=== PATIENT | male | born 1955 | race Caucasian/White ===

== ENCOUNTER 2017-03-18 10:10 | Day surgery (SDC) | payer BC ==
[2017-03-18] MEDS ORDERED: NS 1,000 ML IV ONE (10:12)
[2017-03-18] MEDS ORDERED: FAMOTIDINE 20 MG TAB PO ONE (10:12)
[2017-03-18] MEDS ORDERED: DIAZEPAM 5 MG TAB PO ONE (10:12)
[2017-03-18] MEDS ORDERED: diphenhydrAMINE 25 MG CAP PO ONE (10:12)
[2017-03-18] MEDS ORDERED: ASPIRIN EC 325 MG TAB PO ONE (10:12)
[2017-03-18] MEDS ORDERED: fentaNYL 100 MCG/2 ML INJ ONE (10:13)
[2017-03-18] MEDS ORDERED: MIDAZOLAM 2 MG/2 ML VIAL ONE ×2 (10:13→12:27)
[2017-03-18] MEDS ORDERED: LIDOCAINE 1% 300 MG/30 ML SDV ONE (10:13)
[2017-03-18] MEDS ORDERED: IOPAMIDOL (ISOVUE-370) 150 ML BTL IV ONE (10:13)
--- NOTE | 2017-03-18 10:38 | CPEKG ---
Heart Rate: 68 RR Interval: 882 P-R Interval: 188 QRSD Interval: 80 QT Interval: 392 QTC Interval: 417 P Cambridge: 61 QRS [place]: 2 T Wave [place]: 34 EKG Severity - NORMAL ECG - EKG Impression: SINUS RHYTHM Electronically Signed By: Andrés Acevedo 18-Mar-2017 11:04:50
[2017-03-18 10:54] LABS: PLATELET COUNT 191 10^3/uL (150-400)
[2017-03-18 11:05] LABS: INR 1.02 (0.83-1.16); PROTIME(PATIENT) 13.3 SEC (12.0-15.0)
--- NOTE | 2017-03-18 11:54 | PDPROPOC ---
Sedation Plan of Care Sedation Plan of Care: vital signs stable, mental status noted, patient educated of risks, benefits, alternatives, patient can tolerate sedation ASA Classification: ASA 2 Planned drugs: fentanyl, midazolam Mallampati Score: Class 1 Mallampati Reference Image:
--- NOTE | 2017-03-18 11:54 | PDGENHP ---
History & Physical History of Present Illness: 61 year old gentleman with Non sustainved VT on ETT. Pertinent Past, Social, Family History: PMH: PAF dx in 1999 Relevant Physical Exam: awake, alert, appropriate. distal pulses in tact
[2017-03-18] MEDS ORDERED: NITROGLYCERIN 0.4 MG BTL SL PRN (12:57)
[2017-03-18] MEDS ORDERED: ONDANSETRON 4 MG/2 ML VIAL IVP PRN (12:57)
[2017-03-18] MEDS ORDERED: ATROPINE SULFATE 1 MG/10 ML SYR IVP PRN (12:57)
--- NOTE | 2017-03-18 13:59 | GPN ---
[f rep st] PROCEDURE NOTE DATE OF PROCEDURE: 03/18/2017 PROCEDURE PERFORMED: Diagnostic left heart catheterization. INDICATION FOR PROCEDURE: High-risk findings on exercise treadmill stress test including increasing ventricular ectopy and runs of nonsustained ventricular tachycardia. PROCEDURE: After informed consent was obtained, the patient was brought to the cardiac catheterizati on lab and prepped and draped in sterile fashion. Using 1% lidocaine, the right groin was anesthetiz ed. Using the modified Seldinger technique, a 6-Turkmen catheter was placed in the right common femor al artery without complications. A JL4 catheter was used to take images of the left coronary anatomy in multiple projections. The JL4 catheter was exchanged over a guidewire for a JR4 catheter. JR4 c atheter was used to take images of the right coronary anatomy in multiple projections. The JR4 escobar ter was exchanged over a guidewire for angled pigtail catheter. Angled pigtail catheter was used to cross the aortic valve. LVEDP was assessed left ventriculogram was performed. Aortic valve gradient and pullback was assessed. Angled pigtail catheter was removed over a guidewire. After removal of angled pigtail catheter, right common femoral artery angiography was obtained demonstrating appropria te placement of the 6-Turkmen femoral sheath below the level of the inguinal ligament without evidence of trauma to the femoral or iliac vessels. FINDINGS: Left main is short and sizing and normal caliber that promptly bifurcates into left anteri or descending and left circumflex coronary artery. There is no evidence of coronary disease within t he left main. Left anterior descending artery: Its branches are free of coronary artery disease. Left circumflex artery: A codominant vessel with no evidence of coronary disease. There is no evide nce of coronary disease when large size first obtuse marginal branch. Right coronary artery is a codominant vessel that bifurcates into PDA and PLV branch. There is no ev idence of coronary disease or its branch vessels. Hemodynamics: LVEF 65%. LVEDP 9 mmHg. Aortic valve gradient: None. CONCLUSION: 1. Normal coronary arteries. 2. Normal left ventricular function with LVEF of 60% to 65%. 3. Normal hemodynamics with LVEDP of 9 mmHg. Successful deployment of Angio-Seal closure device. There were no postoperative complications. PLAN: Patient will be discharged home later this afternoon. Patient is scheduled to see Dr. Rafi Linares of electrophysiology in consultation in the setting of increasing ventricular ectopy, runs of non sustained ventricular tachycardia, and a history of paroxysmal atrial fibrillation. /[id number]/MODL
== END 2017-03-18 17:00 | disposition home or self-care (01) ==
LOC: FCATH 10:10
PROVIDERS: ATTEND Internal Medicine Cardiovascular Disease
DX: I48.0 Paroxysmal atrial fibrillation (principal); I49.3 Ventricular premature depolarization; R07.89 Other chest pain; R42 Dizziness and giddiness
CPT/HCPCS: C1760; J1644; J2250; J3010; Q9967

== ENCOUNTER 2017-03-18 20:34 | Observation (INO) | payer BC ==
[2017-03-18] MEDS ORDERED: IOPAMIDOL (ISOVUE-300) 100 ML BTL ONE (20:46)
[2017-03-18 20:48] LABS: PLATELET COUNT 191 10^3/uL (150-400)
[2017-03-18 21:01] LABS: INR 1.08 (0.83-1.16); PROTIME(PATIENT) 13.9 SEC (12.0-15.0)
--- NOTE | 2017-03-18 21:27 | CPEKG ---
Heart Rate: 68 RR Interval: 882 P-R Interval: 200 QRSD Interval: 90 QT Interval: 396 QTC Interval: 422 P [place]: 51 QRS [place]: 33 T Wave [place]: 31 EKG Severity - OTHERWISE NORMAL ECG - EKG Impression: SINUS RHYTHM EKG Impression: VENTRICULAR PREMATURE COMPLEX Electronically Signed By: David Cruz 18-Mar-2017 23:06:02
[2017-03-18] MEDS ORDERED: ONDANSETRON DISINTEGRATING 4 MG TAB PO PRN (22:40)
[2017-03-18] MEDS ORDERED: ONDANSETRON 4 MG/2 ML VIAL IVP PRN (22:40)
[2017-03-18] MEDS ORDERED: ACETAMINOPHEN 325 MG TAB PO PRN (22:40)
--- NOTE | 2017-03-18 22:47 | EDPHY ---
H & P Time Seen by Provider: 03/18/17 20:39 HPI/ROS: HPI Post coronary angiogram bleeding. 61-year-old male by ambulance with his automatic spinning lathe setter Dr. Fish Noe. This patient had a coronary angiogram earlier this afternoon. He was home after the procedure. He stood up and felt a pop in his right inguinal area. He then stated that he became nauseous followed by lightheadedness and had a near fainting event. Dr. Fish Noe his automatic spinning lathe setter happened to be close by. Dr. Noe came to his house and assessed him. He was diaphoretic and pale looking. Dr. Fish Noe did not appreciate a right femoral expanding hematoma involving the insertion site. However, he applied pressure to the area and the patient was emergently brought to the emergency department. On arrival his vital signs were normal. I inspected the area of the catheter insertion. There was no expanding hematoma. The patient denies any associated chest pain or palpitations. ROS: Constitutional: No fever, no chills. As above. Eyes: No discharge. No changes in vision. ENT: No sore throat. No nasal congestion or rhinorrhea. Respiratory: No cough. No shortness of breath. Cardiac: No chest pain, no palpitations. Gastrointestinal: No abdominal pain, no vomiting, no diarrhea. Genitourinary: No hematuria. No dysuria or increased frequency with urination. Musculoskeletal: No back pain. No neck pain. No myalgias or arthralgias. Skin: No rashes. Neurological: No headache. No focal weakness or altered sensation. Past medical history: Appendectomy, hernia, broken pelvis, multiple orthopedic surgeries, atrial fibrillation with electrical cardioversion. This is the reason for the diagnostic coronary angiogram prior to being seen by Dr. Linares. He is not on any anticoagulation or antiplatelet agents. Social history: Nonsmoker. Here with his . No alcohol Physical Exam: General Appearance: Alert, mildly anxious. This patient is responding to questions appropriately and in full sentences. This patient appears well- hydrated and well-nourished. Eyes: Pupils equal and round no pallor or injection. No lid edema, erythema or injection. ENT, Mouth: Mucous membranes are moist. The pharyngeal tissues are unremarkable. No edema or swelling. No asymmetry suggestive of abscess. No erythema or exudates. No tongue lacerations or abrasions. Respiratory: There are no retractions, lungs are clear to auscultation with good air movement bilaterally. Cardiovascular: Regular rate and rhythm. No murmur. Gastrointestinal: Abdomen is soft and nontender, no masses, bowel sounds normal. No focal tenderness at McBurney's point. No Curry sign. Neurological: Motor sensory function is grossly intact. Cranial nerves are normal. Skin: Warm and dry, no rashes. Musculoskeletal: Neck is supple and nontender. Extremities are symmetrical. Right femoral catheter insertion site inspected. Strong pulse, no significant hematoma or evidence of expanding/pulsatile mass. All joints range without pain or impingement. His lower extremities are neurovascularly intact. Psychiatric: No agitation. No depression. Database: EKG: EKG time is 9:25 p.m.; EKG shows a narrow complex normal sinus rhythm with a ventricular rate of 68. PVCs noted. The NC, QRS, QT intervals are within normal limits. There are no ST-T wave changes indicative of ischemic or injury pattern. No evidence of right heart strain. Interpreted by me. Imaging: CT scan of the abdomen and pelvis with IV contrast: No retroperitoneal hematoma. No evidence of hemorrhage. Femoral insertion site has some stranding but nothing abnormal considering the procedure. Results were discussed with staff radiologist Dr. Tushar Rivera. Procedures: Emergency department course: On arrival, 2 large-bore IVs were placed. Vital signs obtained and are normal. I-STAT hematocrit normal. I evaluated him along with his automatic spinning lathe setter Dr. Fish Noe. EKG obtained. He is stable. 1 L of IV normal saline started. He was sent for CT imaging as above. 10:45 p.m., we observe this patient in the emergency department for 2 hours. He has remained stable but still states he has some nausea and is complaining of a dull headache. He does not want any opiate pain medications because he feels this will make him more nauseous and make him lightheaded. Toradol is not an option for obvious reasons. Plan will be to admit him to observation overnight. I discussed the results of his CT scan and emergency department workup with him and his . All of their questions were answered. He and his feel more comfortable with him staying in the hospital overnight. I spoke with the on-call hospitalist. Case discussed in detail. Patient accepted for admission to telemetry observation. Patient admitted in stable and improved condition. Differential Diagnosis: The differential diagnosis on this patient includes but is not limited to vasovagal syncope. Significant postprocedural hemorrhage, CVA, arrhythmia unlikely. This represents a partial list of diagnoses considered. These considerations are based on history, physical exam, past history, reassessment and diagnostic testing. Smoking Status: Never smoked Constitutional: Initial Vital Signs Temperature (C) 37.2 C 03/18/17 20:39 Heart Rate 78 03/18/17 20:39 Respiratory Rate 18 03/18/17 20:39 Blood Pressure 126/82 H 03/18/17 20:39 O2 Sat (%) 97 03/18/17 20:39 O2 Delivery Mode Room Air Allergies/Adverse Reactions: hydrocodone [From Vicodin] Allergy (Verified 03/12/17 10:32) Vomiting morphine Allergy (Verified 03/19/17 00:28) Vomiting Home Medications: Medication Instructions Recorded Aspirin [Aspirin 81mg (*)] 81 mg PO DAILY 03/12/17 Cyanocobalamin [Vitamin B12 (*)] 1,000 mcg PO DAILY 03/12/17 Herbals/Supplements -Info Only 1 ea PO DAILY 03/12/17 Multivitamins [Multivitamin (*)] 1 each PO DAILY 03/12/17 Carboxymethylcellulose 1% [Refresh 1 drop EACHEYE DAILY PRN 03/19/17 Celluvisc (*)] Medical Decision Making - Data Points Laboratory Results: Laboratory Results 03/18/17 20:40 03/18/17 20:40 Medications Given: Discontinued Medications Sodium Chloride (Ns) 500 mls @ 500 mls/hr IV EDNOW ONE Stop: 03/19/17 00:28 Last Admin: 03/18/17 23:32 Dose: 500 mls Sodium Chloride (Ns) 1,000 mls @ 250 mls/hr IV ONCE ONE Stop: 03/19/17 03:47 Last Admin: 03/19/17 01:00 Dose: 1,000 mls Departure - Departure Disposition: [facility] Inpatient Acute Clinical Impression: Near syncope, Status post cardiac catheterization
[2017-03-18] MEDS ORDERED: NS 500 ML IV ONE (23:29)
--- NOTE | 2017-03-18 23:44 | PDGENHP ---
History and Physical - Chief Complaint Nausea - History of Present Illness 61 yo M w/ hx of arrhythmias presents after likely vasovagal episode. Patient underwent cardiac cath with Dr. Noe earlier today. The procedure was uncomplicated with normal findings and he was sent home. Once at home he was eating dinner and leaned forward to eat over his plate. Upon doing this, he experienced acute, severe pain in his right groin. His noticed a bulge in his R groin at the site of the puncture and applied pressure. Per report the bulge disappeared after this. He was brought to the ED were evaluation was largely unremarkable include CT A/P without hematoma. He continues to feel nauseated and fatigued so he was admitted for observation. History Information - Allergies/Home Medication List Allergies/Adverse Reactions: acetaminophen [From Vicodin] Allergy (Verified 03/12/17 10:32) Vomiting hydrocodone [From Vicodin] Allergy (Verified 03/12/17 10:32) Vomiting Home Medications: Aspirin [Aspirin 81mg (*)] 81 mg PO DAILY 03/12/17 [Last Taken Unknown] Cyanocobalamin [Vitamin B12 (*)] 1,000 mcg PO DAILY 03/12/17 [Last Taken Unknown ] Herbals/Supplements -Info Only 1 ea PO DAILY 03/12/17 [Last Taken Unknown] Multivitamins [Multivitamin (*)] 1 each PO DAILY 03/12/17 [Last Taken Unknown] I have personally reviewed and updated: family history, medical history - Past Medical History atrial fibrillation - Family History Positive for: CAD - Social History Smoking Status: Never smoked Review of Systems Review of Systems: ROS: 10pt was reviewed & negative except for what was stated in HPI & below Physical Exam Physical Exam: Temp Pulse Resp BP Pulse Ox 36.6 C 66 14 144/78 H 96 03/18/17 23:37 03/18/17 23:37 03/18/17 23:37 03/18/17 23:37 03/18/17 23:37 Constitutional: no apparent distress, uncomfortable Eyes: PERRL, EOMI Ears, Nose, Mouth, Throat: moist mucous membranes, no oral mucosal ulcers Cardiovascular: regular rate and rhythym, no murmur, rub, or gallop Respiratory: no respiratory distress, no rales or rhonchi Skin: warm, normal color Musculoskeletal: full muscle strength, no muscle tenderness Neurologic: AAOx3, CN II-XII Intact Psychiatric: interacting appropriately, not anxious Lab Data & Imaging Review 03/18/17 20:40 03/18/17 20:40 WBC 7.16 10^3/uL (3.80-9.50) 03/18/17 20:40 RBC 5.11 10^6/uL (4.40-6.38) 03/18/17 20:40 Hgb 16.2 g/dL (13.7-17.5) 03/18/17 20:40 POC Hgb 16.3 gm/dL (13.7-17.5) 03/18/17 20:33 Hct 46.3 % (40.0-51.0) 03/18/17 20:40 POC Hct 48 % (40-51) 03/18/17 20:33 MCV 90.6 fL (81.5-99.8) 03/18/17 20:40 MCH 31.7 pg (27.9-34.1) 03/18/17 20:40 MCHC 35.0 g/dL (32.4-36.7) 03/18/17 20:40 RDW 12.4 % (11.5-15.2) 03/18/17 20:40 Plt Count 191 10^3/uL (150-400) 03/18/17 20:40 MPV 10.3 fL (8.7-11.7) 03/18/17 20:40 Neut % (Auto) 52.9 % (39.3-74.2) 03/18/17 20:40 Lymph % (Auto) 31.7 % (15.0-45.0) 03/18/17 20:40 [place] % (Auto) 13.1 % (4.5-13.0) H 03/18/17 20:40 Eos % (Auto) 1.4 % (0.6-7.6) 03/18/17 20:40 Baso % (Auto) 0.6 % (0.3-1.7) 03/18/17 20:40 Nucleat RBC Rel Count 0.0 % (0.0-0.2) 03/18/17 20:40 Absolute Neuts (auto) 3.79 10^3/uL (1.70-6.50) 03/18/17 20:40 Absolute Lymphs (auto) 2.27 10^3/uL (1.00-3.00) 03/18/17 20:40 Absolute Monos (auto) 0.94 10^3/uL (0.30-0.80) H 03/18/17 20:40 Absolute Eos (auto) 0.10 10^3/uL (0.03-0.40) 03/18/17 20:40 Absolute Basos (auto) 0.04 10^3/uL (0.02-0.10) 03/18/17 20:40 Absolute Nucleated RBC 0.00 10^3/uL (0-0.01) 03/18/17 20:40 Immature Gran % 0.3 % (0.0-1.1) 03/18/17 20:40 Immature Gran # 0.02 10^3/uL (0.00-0.10) 03/18/17 20:40 PT 13.9 SEC (12.0-15.0) 03/18/17 20:40 INR 1.08 (0.83-1.16) 03/18/17 20:40 APTT 24.4 SEC (23.0-38.0) 03/18/17 20:40 POC Sodium 144 mEq/L (134-144) 03/18/17 20:33 Sodium 140 mEq/L (134-144) 03/18/17 20:40 POC Potassium 3.5 mEq/L (3.3-5.0) 03/18/17 20:33 Potassium 3.6 mEq/L (3.5-5.2) 03/18/17 20:40 POC Chloride 106 mEq/L (97-110) 03/18/17 20:33 Chloride 104 mEq/L (97-110) 03/18/17 20:40 Carbon Dioxide 23 mEq/l (22-31) 03/18/17 20:40 Anion Gap 13 mEq/L (8-16) 03/18/17 20:40 POC BUN 20 mg/dL (7-23) 03/18/17 20:33 BUN 19 mg/dL (7-23) 03/18/17 20:40 Creatinine 0.9 mg/dL (0.7-1.3) 03/18/17 20:40 POC Creatinine 0.9 mg/dL (0.7-1.3) 03/18/17 20:33 Estimated GFR > 60 03/18/17 20:40 Glucose 90 mg/dL (70-100) 03/18/17 20:40 POC Glucose 93 mg/dL (70-100) 03/18/17 20:33 Calcium 8.6 mg/dL (8.5-10.4) 03/18/17 20:40 Patient ABO/Rh A NEGATIVE 03/18/17 20:40 Antibody Screen NEGATIVE 03/18/17 20:40 Imaging Review: CT A/P without acute intra-abdominal process. Visualized and Interpreted EKG results: Yes EKG Interpretation: Positive for: normal sinsus rhythm EKG additional interpertation: PVC noted Assessment & Plan Assessment: 61 yo M s/p cardiac cath on same day presents with near syncope. Plan: 1. Near syncope - Story sounds very consistent with a vaso-vagal event noting triggered by pain and marked by severe nausea and diaphoresis. Work-up in the ED was negative for serious complication of cardiac cath, including unremarkable CT A/P. Patient does have a hx of unclear arrhythmia but this seems less likely noting symptoms. - Monitor on telemetry - Continue IVF - Seen by Dr. Noe from cardiology service, appreciate assistance 2. Hx of arrhythmia - Patient reports previous hx of afib and unclear wide complex tachycardia seen on ETT. Cardiac cath on 03/18 showed no CAD. He was previously on amiodarone but is no longer on this. - Monitor on telemetry Diet - Regular Code - Full Ppx - SCDs Dispo - Admit to observation status
[2017-03-18] MEDS ORDERED: NS 1,000 ML IV ONE (23:48)
[2017-03-19 04:37] LABS: PLATELET COUNT 167 10^3/uL (150-400)
[2017-03-19 07:40] VITALS: BP 126/77; PULSE 64; RESP 12; TEMP 97.9; O2SAT 93
--- NOTE | 2017-03-19 10:14 | PDDCSUM ---
Discharge Summary Discharge Summary: HPI/Hospital Course 61 yo M s/p cardiac cath on same day of admission admitted for near syncope, likely vasovagal in nature. Stabilized with IVF. Some initial concerns about bleeding from groin with possible reported hematoma, but negative CT A/P. No bleeding noted overnight. Monitored overnight, no events on tele. Walked around halls this morning w/o incident. Dr. Noe evaluated and cleared for discharge. He has an appt with his Oscillograph Technician today mid morning. D/C diagnosis: 1. Near syncope - Story sounds very consistent with a vaso-vagal event noting triggered by pain and marked by severe nausea and diaphoresis. Work-up in the ED was negative for serious complication of cardiac cath, including unremarkable CT A/P. Patient does have a hx of unclear arrhythmia but this seems less likely noting symptoms. 2. Hx of arrhythmia - Patient reports previous hx of afib and unclear wide complex tachycardia seen on ETT. Cardiac cath on 03/18 showed no CAD. He was previously on amiodarone but is no longer on this. Exam: VSS NAD AAOX RRR CTAB S/NT/ND NO EDEMA SKIN WARM MEDS: SEE MED REC. NO CHANGES TO HOME MEDS WERE MADE F/U: PER ABOVE TOTAL TIME SPENT ON DISCHARGE IS 35 MINS
--- NOTE | 2017-03-19 15:56 | ASDISCHSUM ---
Discharge Information Plan Status:Home with No Needs Medically Cleared to Leave:03/18/2017 Discharge Date:03/19/2017 10:43 AM CM D/C Disposition: ADT D/C Disposition:Home, Routine, Self-Care Projected Discharge Date:03/19/2017 12:00 AM Transportation at D/C: Discharge Delay Reason: Follow-Up Date:03/19/2017 12:00 AM Discharge Slot: Final Diagnosis: Placement Information Patient Contact Information Contact Name:ANDREW Relationship: Address:[address] [place] [address] City:[place] Alternate Phone: [facility]/Zip Code:[place] [address] Email: Financial Information Financial Class:HMO and PPO Plans Primary Plan Desc: OUT OF STATE PPO Primary Plan Number:[id number] Secondary Plan Desc: Secondary Plan Number: Assessment Information Intervention Information
--- NOTE | 2017-03-19 15:56 | ASDISCHSUM ---
Discharge Information Plan Status:Home with No Needs Medically Cleared to Leave:03/18/2017 Discharge Date:03/19/2017 10:43 AM CM D/C Disposition: ADT D/C Disposition:Home, Routine, Self-Care Projected Discharge Date:03/19/2017 12:00 AM Transportation at D/C: Discharge Delay Reason: Follow-Up Date:03/19/2017 12:00 AM Discharge Slot: Final Diagnosis: Placement Information Patient Contact Information Contact Name:ANDREW Relationship: Address:[address] [place] [address] City:[place] Alternate Phone: [facility]/Zip Code:[place] [address] Email: Financial Information Financial Class:HMO and PPO Plans Primary Plan Desc: OUT OF STATE PPO Primary Plan Number:[id number] Secondary Plan Desc: Secondary Plan Number: Assessment Information Intervention Information
--- NOTE | 2017-03-19 15:56 | ASDISCHSUM ---
Discharge Information Plan Status:Home with No Needs Medically Cleared to Leave:03/18/2017 Discharge Date:03/19/2017 10:43 AM CM D/C Disposition: ADT D/C Disposition:Home, Routine, Self-Care Projected Discharge Date:03/19/2017 12:00 AM Transportation at D/C: Discharge Delay Reason: Follow-Up Date:03/19/2017 12:00 AM Discharge Slot: Final Diagnosis: Placement Information Patient Contact Information Contact Name:ANDREW Relationship: Address:[address] [place] [address] City:[place] Alternate Phone: [facility]/Zip Code:[place] [address] Email: Financial Information Financial Class:HMO and PPO Plans Primary Plan Desc: OUT OF STATE PPO Primary Plan Number:[id number] Secondary Plan Desc: Secondary Plan Number: Assessment Information Intervention Information
== END 2017-03-19 10:43 | disposition home or self-care (01) ==
LOC: EDUNIT# → F2W 23:41
PROVIDERS: ADMIT Student in an Organized Health Care Education/Training Program; ATTEND Student in an Organized Health Care Education/Training Program
DX: R55 Syncope and collapse (principal); R11.0 Nausea; Z86.79 Personal history of other diseases of the circulatory system
CPT/HCPCS: 74177; 93005; 99285; G0378; 82947-QW; Q9967